=== PATIENT | male | born 1980 | race Caucasian/White ===

== ENCOUNTER 2025-07-22 03:55 | Day surgery (SDC) | payer OTHER, SELFPAY ==
[2025-07-11 12:47] VITALS: BMI 24.9
--- OUTSIDE RECORDS SUMMARY | 2025-07-22 03:57 | XMS_ITS | Clinical Summary ---
Author Organization [address] Address [address] [place] [address] Care Team Providers Care Geological Drafter Name Role Phone Miscellaneous, Not In File Primary Care Provider Unavailable Allergies No known active allergies Medications glucosamine HCl 1,500 mg tablet Take by mouth. Active chondroitin sulfate A 250 mg capsule Take by mouth. Active ibuprofen (ADVIL,MOTRIN) 200 mg tab/cap Take 200 mg by mouth every 6 (six) hours as needed for pain. 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 Gender Identity Not on file Sexual Orientation Not on file Obstetrics History Last Filed Vital Signs Vital Sign Reading Time Taken Comments Blood Pressure 123/82 10/14/2017 3:16 PM ASSISTANT PRESS OPERATOR Pulse 75 10/14/2017 3:16 PM ASSISTANT PRESS OPERATOR Temperature - - Respiratory Rate - - Oxygen Saturation - - Inhaled Oxygen Concentration - - Weight 87.1 kg (192 lb) 10/14/2017 3:16 PM ASSISTANT PRESS OPERATOR Height 188 cm (6' 2) 10/14/2017 3:16 PM ASSISTANT PRESS OPERATOR Body Mass Index 24.65 10/14/2017 3:16 PM ASSISTANT PRESS OPERATOR Plan of Treatment Not on file Care Teams Geological Drafter Relationship Specialty Start Date End Date Miscellaneous, Not In File PCP - General 08/17/17
--- OUTSIDE RECORDS SUMMARY | 2025-07-22 03:57 | XMS_ITS | Data Portability ---
Author Organization [facility], Main Office Address [address] [place] [address] Care Team Providers Care Movie Editor Name Role Phone FLORENCIA BARRAZA Primary Care Provider Assessment Encounter Date Assessment Date Assessment LastModified by Organization Details LastModified Time 09/27/2024 09/27/2024 cha Ta n Lt hyperkeratosis Lt painful foot. [email or web address] Not available 09/27/2024 16:26:16 11/22/2024 11/22/2024 This note is dictated and transcribed by [employer]. Specification Consultant variances may occur. Despite proofreading, typographical errors may occur. Occasional wrong-word or 'oswwj-r-smlz' substitutions may have occurred due to the inherent limitations of voice recording. Read the chart carefully and recognize, using context, where substitutions have occurred. [email or web address] Not available 11/22/2024 15:38:01 Plan of Treatment Reminders Order Date Submit Date Provider Last Modified By Organization Details Last Modified Time Details Appointments None recorded. Lab CBC 2024 025 [email or web address] [facility] (Lab), [address] [place], [address], 5 08:25:48 CMP, serum or plasma 2024 025 [email or web address] [facility] (Lab), [address] [place], [address], 5 08:25:48 PT/INR 2024 025 [facility] Pod[facility]ry [place], [address], [place], [address], 5 16:50:10 Referral certified green building engineer referral - left hammer toe 2023 024 LEIF Nash DPM, [address], [address], [place], [address], 5 05:01:55 Procedures None recorded. Surgeries None recorded. Imaging electrocard iogram, routine ECG, 12 leads min 2024 025 [email or web address] Not available 5 08:25:58 Medication Orders None recorded. Patient TargetsNo targets recorded. Patient InstructionsNo instructions recorded. Reason for Referral Oracle Programmer Analyst Referral for Acqu ired hammer toe of lesser toe of left foot left hammer toe Referring Physician: [facility], Encounter Date: 09/27/2024 Results Created Date Observation Date Name Description Value Unit Range Abnormal Flag Note LastModifiedBy Organization Detail LastModifiedTime Result Notes None recorded. Problems Name Problem SNOMED Code Status Onset Date Resolution Date Notes Provider Name and Address Organization Details Recorded Time Acquired hammer toe of lesser toe of left foot 747667421407332 03 Active 2023 ESTEFANY Michael null, [employer] 4 16:15:34 Pain in left foot 300197442386206 Active 2023 Manolo Trevino DPM [address], [address], [place], [address], [employer] 4 16:26:26 Hammer toe 183627696 Active 2023 Manolo Trevino DPM [address], [address], [place], [address], [employer] 4 16:26:58 Hallux valgus AND bunion 462115906 Active 2023 Manolo Trevino DPM [address], [address], [place], [address], [employer] [facility] [employer] [facility] 4 16:27:05 Ganglion cyst of left foot 718987069322228 3 Active 2024 Brian Nash DPM [address] [facility], [address], [place], [address], [employer] [facility] 5 15:37:46 Pre-surge ry testing Active 2024 Brian Nash DPM [address] [facility], [address], [place], [address], [employer] [facility] 5 15:38:40 Problem Notes None recorded. Procedures Surgical History Date Name Laterality Status Provider Name and Address Organization Details Recorded Time 5 Blank Procedure Note completed Brian Nash DPM [address] [facility], [address], [place], [address], [employer] [facility] 11/22/2024 15:41:34 Imaging Results None recorded. Procedure Notes None recorded. Medical Equipment None Reported. Allergies No known drug allergies Medications Name Sig Start Date Stop Date Status Note LastModified by Organization Details LastModified Time ergocalciferol (vitamin D2) 1,250 mcg (50,000 unit) capsule TAKE 1 CAPSULE BY MOUTH EVERY WEEK DIRECTED active Not Available Not Available No t Available Vitals Date Recorded Heart rate Systolic And Diastolic Provider Name and Address Organization Details Last Updated DateTime 11/22/2024 68 /min 164/82 mm[Hg] Kassy Cantu [facility] [employer] 11/22/2024 15:04:09 Date Recorded Body height Body mass index (BMI) Body weight Provider Name and Address Organization Details Last Updated DateTime 11/22/2024 187.96 cm 25.7 kg/m2 82412.47 g Marcelle Steele [facility] 11/22/2024 14:59:11 Date Recorded Body height Body mass index (BMI) Body weight Oxygen saturation Oxygen saturation in Arterial blood by Pulse oximetry Heart rate Body temperature Provider Name and Address Organization Details Last Updated DateTime 4 187.96 cm 25.7 kg/m2 55097.4 7 g 99 % 99 % 67 /min 98.2 [degF] ESTEFANY Michael [place] [facility] [place] [employer] [place] [facility] 16:08:01 Social History Question Answer Notes LastModified by Organizat ion Details LastModified Time Tobacco Smoking Status Never Smoker ESTEFANY Michael null, [place] [facility] [place] [employer] [place] [facility] 09/27/2024 16:03:27 What Is Your Level Of Caffeine Consumption? Moderate [email or web address] Information not available 09/27/2024 What Was The Date Of Your Most Recent Tobacco Screening? 09/27/2024 [email or web address] Information not available 09/27/2024 Has Tobacco Cessation Counseling Been Provided? No [email or web address] Information not available 09/27/2024 Sex: Unknown Functional Status Question Answer Note LastModified by Organizat ion Details LastModified Time Do you use any illicit or recreational drugs? No [email or web address] Information not available 09/27/2024 What is your level of alcohol consumption? Occasional [email or web address] Information not available 09/27/2024 Mental Status None recorded. Family History Nothing Reported. Medical History No medical history recorded. Past Encounters Encounter ID Performer Location Encounter Start Date Encounter Closed Date Diagnosis/Indication Diagnosis SNOMED-CT Code Diagnosis ICD10 Code Diagnosis IMO Codes Diagnosis Note [id number] Manolo Trevino DPM [facility] [place]iat[place] [address] [address] 09/27/2024 15:49:46 09/27/2024 16:58:06 Acquired hammer toe of lesser toe of left foot [id number] 7792670 M20.42 Pain in left foot 931832 8971 26785 M79.672 Hammer toe 971855210 M20 .42 2nd Hallux miah nicol AND bunion [id number] M20.12 [id number] Brian Nash DPM [facility] [place] [address] [facility] [address] [place] [address] 11/22/2024 14:47:41 12/07/2024 13:39:54 Ganglion cyst of left foot 3496954672 546843 M67.472 left second DIPJaspira tion of joint todaykeep clean and coveredobt ain surgical clearance for excision of ganglion left 2nd toe Pre-surgery testing 1104 38719 Z01.89 Health Concerns Section Related Observation LastModified by Organization Detai ls LastModified Time None Recorded Concern Status LastModified by Organization Details LastModified Time None Recorded Advance Directives Directive None Recorded Payers Insurance Date Sequence Insurance Name Policy Number Policy Mullen Covered Member ID Mullen Member ID Guarantor Name 12/07/2024 1 [facility] [id number] Brian Barbaleton [id number] Brian Luna Notes Date Note Type Note Provider Name and Address Organization Details Recorded Time 09/27/2024 text/html Pt c/o corn on 2nd digit, Lt foot. Painful in shoes and during WB; present x many mos. Manolo Trevino DPM [address], [employer], [place], [address], [employer] 09/27/2024 16:27:09 11/22/2024 text/html . Patient is a 44-year-old male he presents the office with complaints pain to his left toe he states he has developed a painful bubble on the top of his toe. Patient states that the area keeps returning. Patient states he has sterilized needles at home and pop the area which he states it continues to recur. Patient states when the bubble gets large it is painful with shoe gear he denies any open wounds or infection. I did recommend that the patient stop using needles on his toe as this could cause deep infection and loss of toe. Patient states understanding. Brian Nash DPM [address], [address], [place], [address], [employer] 11/27/2024 09:41:58
[2025-07-22 09:50] VITALS: BP 142/85; PULSE 67; RESP 18; TEMP 36.7; O2SAT 100; BMI 25.6
[2025-07-22] MEDS: LACTATED RINGERS 1,000 ML 150 ML IV CONT (10:03)
--- NOTE | 2025-07-22 10:21 | WPDANESEPPF ---
Anes - Initial Pre Proc Eval Procedure: Operation Date: 07/22/25 11:00 Proposed Procedures p Diagnostic Colonoscopy - Jung Leija MD Date/Time: 07/22/25 10:21 Surgeon: Jung Leija MD Pre Op Diagnosis: Abdominal distension (gaseous) Patient Data Age: 44 Gender: M Height: 1.88 m Weight: 90.6 kg Last Vital Signs Temp 36.7 C 07/22/25 09:50 Pulse 67 07/22/25 09:50 Resp 18 07/22/25 09:50 BP 142/85 H 07/22/25 09:50 Pulse Ox 100 07/22/25 09:50 O2 Del Method Room Air 07/22/25 09:50 Allergies Allergy/AdvReac Type Severity Reaction Status Date / Time No Known Allergies Allergy Verified 07/22/25 09:54 Home Medications ?Medication ?Instructions ?Recorded ?Confirmed ?Type linaclotide 145 mcg capsule 145 mcg PO DAILY #90 caps 06/24/25 07/22/25 Rx (Linzess) Patient hx anesthesia problems: none Family hx anesthesia problems: none Results Review: All pre-operative results and documents have been reviewed as part of the pre-operative evaluation. [facility] Social History Social History Smoking status: Never smoker Alcohol intake: current Drinks per week: 4 Alcohol use details: Social Substance use: never Substance use type: does not use Living arrangements: with family Spiritual care concerns: No Anes - Eval Final PreProcedure Day of Procedure 07/22/25 10:21 Patient weight: normal Heart: regular rate and rhythm Lungs: clear to auscultation Airway: Mallampati scale class II Neurological: alert and oriented Last oral intake: >/= 8 hours ASA classification: I Emergent: no Anesthetic plan: proceed Anesthesia type and monitoring: general GIVS and standard monitoring Results Review: All pre-operative results and documents have been reviewed as part of the pre-operative evaluation. Informed Consent: The patient's anesthetic plan and its attendant risks and benefits were discussed with the patient/family/POA. Questions were solicited and answers provided to the satisfaction of the patient/family/POA.
--- NOTE | 2025-07-22 10:26 | WPDHPUPDATE1 ---
History and Physical Update Update Date/Time: 07/22/25 10:26 History and Physical has been reviewed, including an updated exam of the patient. There are NO changes in the patient's condition. Risks, benefits, and alternatives have been discussed and questions answered. Patient agrees to proceed with procedure.
[2025-07-22 10:39] VITALS: BP 111/67; PULSE 63; RESP 18; O2SAT 97
[2025-07-22 10:49] VITALS: BP 128/73; PULSE 65; RESP 18; O2SAT 99
[2025-07-22 10:59] VITALS: BP 122/81; PULSE 60; RESP 14; O2SAT 99
== END 2025-07-22 11:06 | disposition home or self-care (01) ==
PROVIDERS: Referring Provider Nurse Practitioner Family; Visit Provider Internal Medicine Gastroenterology
PROC: 0DJD8ZZ Inspection of Lower Intestinal Tract, Via Natural or Artificial Opening Endoscopic (ICD-10-PCS; CPT 45378; principal; 2025-07-22 11:00)
DX: K64.8 Other hemorrhoids (principal)
CPT/HCPCS: 45378; J2704; J7120

== ENCOUNTER 2025-09-18 15:53 | Outpatient (CLI) | payer OTHER, SELFPAY ==
--- NOTE | ~2025-09-18 | XR_ITS ---
EXAMINATION: XR knee RT 3V, 09/18/2025 16:10 PAVER L[facility]ER HISTORY: Pain joint knee,right COMPARISON: No comparisons available. Findings: No acute fracture or malalignment. No significant degenerative changes. Soft tissues unremarkable. Impression: No acute fracture or malalignment. Reviewed, dictated and finalized at location P. R LAYER Impression: No acute fracture or malalignment.
--- OUTSIDE RECORDS SUMMARY | 2025-09-18 20:52 | XMS_ITS | Clinical Summary ---
Author Organization [facility] lin Address [address] [facility] [place] [address] Care Team Providers Care Clip Coater Name Role Phone No, Pcp BUILDING CONSTRUCTION IRONWORKER Primary Care Provider Unavailabl e Social History Tobacco Use Types Packs/Day Years Used Date Smoking Tobacco: Never Assessed Sex and Gender Information Value Date Recorded Sex Assigned at Not on file Legal Sex Male 12:13 PM EDT Gender Identity Not on file Sexual Orientation Not on file Plan of Treatment Not on file Medical Devices Not on file [facility] Member Subscriber Plan / Payer (Ef fective 2021-Present) Name:Brian Luna Relation to Subscriber:Self Name:Brian Luna Payer ID:Not on file Type:Not on file Address: [address] Care Teams Clip Coater Relationship Specialty Start Date End Date No, Pcp, BUILDING CONSTRUCTION IRONWORKER N/A Do not use PCP - General Family Medicine 03/25/21
--- OUTSIDE RECORDS SUMMARY | 2025-09-18 20:52 | XMS_ITS | Clinical Summary ---
Author Organization [address] Address [address] [place] [address] Care Team Providers Care Body Coverer Name Role Phone Miscellaneous, Not In File [...] on file Legal Sex Male 3:54 AM SIMULATION DEVELOPER Gender Identity Not on file Sexual Orientation Not on file Last Filed Vital Signs Vital Sign Reading Time Taken Comments Blood Pressure 123/82 10/14/2017 3:16 PM SIMULATION DEVELOPER Pulse 75 10/14/2017 3:16 PM SIMULATION DEVELOPER Temperature - - Respiratory Rate - - Oxygen Saturation - - Inhaled Oxygen Concentration - - Weight 87.1 kg (192 lb) 10/14/2017 3:16 PM SIMULATION DEVELOPER Height 188 cm (6' 2) 10/14/2017 3:16 PM SIMULATION DEVELOPER Body Mass Index 24.65 10/14/2017 3:16 PM SIMULATION DEVELOPER Plan of Treatment Not on file Care Teams Body Coverer Relationship Specialty Start Date End Date Miscellaneous, Not In File PCP - General 08/17/17
--- OUTSIDE RECORDS SUMMARY | 2025-09-18 20:52 | XMS_ITS | Data Portability ---
Author Organization [facility] [employer], Main Office Address [address] [place] [address] Care Team Providers Care Roller Hand Name Role Phone FLORENCIA BARRAZA Primary Care Provider [phone] Assessment Encounter Date Assessment Date Assessment LastModified by Organization Details LastModified Time 09/27/2024 09/27/2024 cha Ta n Lt hyperkeratosis Lt painful foot. [email or web address] Not available 09/27/2024 16:26:16 11/22/2024 11/22/2024 This note is dictated and transcribed by [employer]. Wink Cutter Operator variances may occur. Despite proofreading, typographical errors may occur. Occasional wrong-word or 'zbvbm-z-fesl' substitutions may have occurred due to the inherent limitations of voice recording. Read the chart carefully and recognize, using context, where substitutions have occurred. [email or web address] Not available 11/22/2024 15:38:01 Plan of Treatment Reminders Order Date Submit Date Provider Last Modified By Organization Details Last Modified Time Details Appointments None recorded. Lab CBC 2024 025 [email or web address] [facility] (Lab), [address] [place], [address], 5 08:25:48 CMP, serum or plasma 2024 025 [email or web address] [facility] (Lab), [address] [place], [address], 5 08:25:48 PT/INR 2024 025 [facility] Podiatry [place], [address], [place], [address], 5 16:50:10 Referral sales marketing manager referral - left hammer toe 2023 024 LEIF Nash DPM, [address], [address], [place], [address], 5 05:01:55 Procedures None recorded. Surgeries None recorded. Imaging electrocard iogram, routine ECG, 12 leads min 2024 025 [email or web address] Not available 5 08:25:58 Medication Orders None recorded. Patient TargetsNo targets recorded. Patient InstructionsNo instructions recorded. Reason for Referral Cap Inspector Referral for Acqu ired hammer toe of [...] toe of lesser toe of left foot [id number] 03 Active 2023 ESTEFANY Michael null, [employer] 4 16:15:34 Pain in left foot 070109576318931 Active 2023 Manolo Trevino DPM [address], [address], [place], [address], [employer] 4 16:26:26 Hammer toe 606930073 Active 2023 Manolo Trevino DPM [address], [address], [place], [address], [employer] 4 16:26:58 Hallux valgus AND bunion 853239986 Active 2023 Manolo Trevino DPM [address], [address], [place], [address], [email or web address] [facility] [employer] 4 16:27:05 Ganglion cyst of left foot 783223765042621 3 Active 2024 Brian Nash DPM [address], [address], [place], [address], [email or web address] [facility] [employer] 5 15:37:46 Pre-surge ry testing Active 2024 Brian Nash DPM [address], [address], [place], [address], [email or web address] [facility] [employer] 5 15:38:40 Problem Notes None recorded. Procedures Surgical History Date Name Laterality Status Provider Name and Address Organization Details Recorded Time 5 Blank Procedure Note completed Brian Nash DPM [address], [address], [place], [address], [email or web address] [facility] [employer] 11/22/2024 15:41:34 Imaging Results None recorded. Procedure [...] 11/22/2024 68 /min 164/82 mm[Hg] Kassy Cantu [facility] [employer] 11/22/2024 15:04:09 Date Recorded Body height Body mass index (BMI) Body weight Provider Name and Address Organization Details Last Updated DateTime 11/22/2024 187.96 cm 25.7 kg/m2 01292.47 g Marcelle Steele [facility] [employer] 11/22/2024 14:59:11 Date Recorded Body height Body mass index (BMI) Body weight Oxygen saturation Heart rate Body temperature Provider Name and Address Organization Details Last Updated DateTime 4 187.96 cm 25.7 kg/m2 02773.4 7 g 99 % 67 /min 98.2 [degF] ESTEFANY Michael [place] [facility] 16:08:01 Social History Question Answer Notes LastModified by Organizat [employer] Details LastModified Time Tobacco Smoking Status Never Smoker ESTEFANY Michael wesley, [place] [facility] 09/27/2024 16:03:27 What Is Your Level Of Caffeine Consumption? Moderate [email or web address] Information not available 09/27/2024 What Was The Date Of Your Most Recent Tobacco Screening? 09/27/2024 [email or web address] Information not available 09/27/2024 Has Tobacco Cessation Counseling Been Provided? No [email or web address] Information not available 09/27/2024 Sex: Unknown Functional Status Question Answer Note LastModified by Organizat ion Details LastModified Time Do you use any illicit or recreational drugs? No [email or web address] Information not available 09/27/2024 What is your level of alcohol consumption? Occasional Information not available 09/27/2024 Mental Status None recorded. Family History Nothing Reported. Medical History No medical history recorded. Past Encounters Encounter ID Performer Location Encounter Start Date Encounter Closed Date Diagnosis/Indication Diagnosis SNOMED-CT Code Diagnosis ICD10 Code Diagnosis IMO Codes Diagnosis Note [id number] Manolo Trevino DPM [facility] Podiatry [place] [address] [address] 09/27/2024 15:49:46 09/27/2024 16:58:06 Acquired hammer toe of lesser toe of left foot 2709799459 2182680 M20.42 Pain in left foot 564676 7306 11696 M79.672 Hammer toe 741395479 M20 .42 2nd Hallux miah nicol AND bunion [id number] M20.12 [id number] Brian Nash DPM [facility] [place] [address] [facility] [address] [place] [address] 11/22/2024 14:47:41 12/07/2024 13:39:54 Ganglion cyst of left foot 5908085535 486458 M67.472 left second DIPJaspira tion of joint todaykeep clean and coveredobt ain surgical clearance for excision of ganglion left 2nd toe Pre-surgery testing 1104 [address]6626 Z01.89 Health Concerns Section Related Observation LastModified by Organization Detai ls LastModified Time None Recorded Concern Status LastModified by Organization Details LastModified Time None Recorded Advance Directives Directive None Recorded Payers Insurance Date Sequence Insurance Name Policy Number Policy Mullen Covered Member ID Mullen Member ID Guarantor Name 12/07/2024 1 [facility] [id number] Brian Luna [id number] Brian Barbaleton Notes Date Note Type Note Provider Name and Address Organization Details Recorded Time 09/27/2024 text/html Pt c/o corn on 2nd digit, Lt foot. Painful in shoes and during WB; present x many mos. Manolo Trevino DPM [address], [address], [place], [address], [employer] 09/27/2024 16:27:09 11/22/2024 text/html . Patient is [...] states understanding. Brian Nash DPM [address], [address], [place], [address], [employer] 11/27/2024 09:41:58
== END 2025-09-18 15:54 | disposition home or self-care (01) ==
PROVIDERS: PCP Nurse Practitioner; Visit Provider Nurse Practitioner
DX: M25.561 Pain in right knee (principal)
CPT/HCPCS: 73562